=== PATIENT | female | born 1975 | race African-American/Black ===

== ENCOUNTER 2016-10-13 14:44 | Emergency (ER) | payer MEDICARE, MEDICAID ==
[~2016-10-13] VITALS: Ht 167.6 cm; Wt 53.4 kg
[~2016-10-13 14:44] MED LIST: AMLO10TA2 PO; CLON0.2T PO; HYDR-3801 PO; METO50TA PO; NIFE90TA2 PO; SEVEL800 PO
[2016-10-13 14:46] VITALS: BP 176/96; PULSE 83; RESP 15; TEMP 98.2; O2SAT 98
--- NOTE | 2016-10-13 14:54 | PD ---
HPI Chief Complaint: Syncope/Near-Syncope Time Seen by Provider: 14:54 Travel History International Travel<30 days: No Contact w/Intl Traveler<30days: No Traveled to known affect area: No History of Present Illness HPI 41 year old female with history of ESRD on dialysis T, TH, Sat, HTN, presents to the emergency department for evaluation of a sensation of lightheadedness while walking to the store. Patient states that she felt like she is going to pass out. She did not. She sat down and recuperated. She states that she felt like she may have been overheated. Denies a chest tightness. No difficulty breathing. Patient has been doing dialysis as scheduled. Denies any recent illnesses, fever, or chills. She has no other symptoms to report at this time. PFSH Past Medical History Arthritis: No Asthma: Yes Autoimmune Disease: No Blood Disorders: No Anxiety: No Depression: No Heart Rhythm Problems: Yes (HEART MURMUR) Cancer: No Cardiomyopathy: Yes ( ) Cardiovascular Problems: Yes High Cholesterol: No Chemotherapy: No Chest Pain: No Congestive Heart Failure: No COPD: No Cerebrovascular Accident: No Diabetes: No Dialysis: Yes (TUESDAY, TUESDAY, TUESDAY ) Diminished Hearing: No Endocrine: No Gastrointestinal Disorders: No GERD: No Glaucoma: No Genitourinary: Yes Headaches: Yes Hepatitis: No Hiatal Hernia: No Hypertension: Yes Immune Disorder: No Kidney Stones: No Musculoskeletal: Yes Neurologic: Yes Psychiatric: No Reproductive: No Respiratory: Yes (ASTHMA) Integumentary: No Migraines: Yes Myocardial Infarction: No Radiation Therapy: No Renal Failure: Yes Seizures: No Sickle Cell Disease: No Sleep Apnea: No Thyroid Disease: No Ulcer: No : 2 Para: 2 Tubal Ligation: Yes Past Surgical History Abdominal Surgery: No AICD: No Arteriovenous Shunt: Yes (RIGHT UPPER ARM) Cardiac Surgery: No Ear Surgery: No Endocrine Surgery: No Eye Surgery: No Genitourinary Surgery: No Joint Replacement: No Oral Surgery: No Pacemaker: No Thoracic Surgery: No Other Surgery: Yes (R UPPER ARM SHUNT, FISTULA) Social History Alcohol Use: No Tobacco Use: No Substance Use: Yes (marijuana) Allergies-Medications (Allergen,Severity, Reaction): Coded Allergies: Benadryl (Verified Adverse Reaction, Intermediate, Nausea/Vomiting, 02/23/16 ) *MDRO Multi-Drug Resistant Organism (Verified Adverse Reaction, Unknown, ) MRSA (hand wound) - 04/2005 MRSA PCR screen #1 NEGATIVE on 09/13/2014; Screen #2 NEGATIVE on 09/16/2014 THIS PATIENT NO LONGER REQUIRES ISOLATION DUE TO A HISTORY OF MRSA. SHE HAS BEEN CLEARED PER INFECTION CONTROL PROTOCOL. Reported Meds & Prescriptions Reported Meds & Active Scripts Active Reported Metoprolol Tartrate 50 Mg Tab 50 Mg PO BID Clonidine (Clonidine HCl) 0.2 Mg Tab 0.2 Mg PO TID Nifedipine ER (Nifedipine) 90 Mg Tab 60 Mg PO DAILY Renvela (Sevelamer Carbonate) 800 Mg Tab 1,600 Mg PO TID Hydralazine (Hydralazine HCl) 100 Mg Tab 100 Mg PO TID Take with meals Amlodipine (Amlodipine Besylate) 10 Mg Tab 10 Mg PO DAILY Review of Systems Except as stated in HPI: all other systems reviewed are Neg Physical Exam Narrative GENERAL: Well-nourished female patient, in no acute distress SKIN: Focused skin assessment warm/dry. HEAD: Atraumatic. Normocephalic. EYES: Pupils equal and round. No scleral icterus. No injection or drainage. ENT: No nasal bleeding or discharge. Mucous membranes pink and moist. NECK: Trachea midline. No JVD. CARDIOVASCULAR: Regular rate and rhythm. No murmur appreciated. RESPIRATORY: No accessory muscle use. Clear to auscultation. Breath sounds equal bilaterally. GASTROINTESTINAL: Abdomen soft, non-tender, nondistended. Hepatic and splenic margins not palpable. MUSCULOSKELETAL: No obvious deformities. No clubbing. No cyanosis. No edema. Right upper extremity AV fistula with positive thrill and bruit. NEUROLOGICAL: Awake and alert. No obvious cranial nerve deficits. Motor grossly within normal limits. Normal speech. PSYCHIATRIC: Appropriate mood and affect; insight and judgment normal. Data Data Last Documented VS Vital Signs Date Time Temp Pulse Resp B/P Pulse Ox O2 Delivery O2 Flow Rate FiO2 10/13/16 17:00 72 18 140/80 100 Room Air 10/13/16 14:46 98.2 Orders Iv Access Insert/Monitor (10/13/16 14:59) Complete Blood Count With Diff (10/13/16 14:59) Basic Metabolic Panel (Bmp) (10/13/16 14:59) Electrocardiogram (10/13/16 ) Urinalysis - C+S If Indicated (10/13/16 14:59) Urine Culture (10/13/16 16:25) Labs Laboratory Tests Test 10/13/16 10/13/16 15:20 16:25 White Blood Count 6.2 TH/MM3 Red Blood Count 3.66 MIL/MM3 Hemoglobin 11.3 GM/DL Hematocrit 33.7 % Mean Corpuscular Volume 92.1 FL Mean Corpuscular Hemoglobin 30.8 PG Mean Corpuscular Hemoglobin 33.5 % Concent Red Cell Distribution Width 12.9 % Platelet Count 121 TH/MM3 Mean Platelet Volume 11.2 FL Neutrophils (%) (Auto) 66.6 % Lymphocytes (%) (Auto) 21.5 % Monocytes (%) (Auto) 10.2 % Eosinophils (%) (Auto) 0.6 % Basophils (%) (Auto) 1.1 % Neutrophils # (Auto) 4.1 TH/MM3 Lymphocytes # (Auto) 1.3 TH/MM3 Monocytes # (Auto) 0.6 TH/MM3 Eosinophils # (Auto) 0.0 TH/MM3 Basophils # (Auto) 0.1 TH/MM3 CBC Comment DIFF FINAL Differential Comment Sodium Level 140 MEQ/L Potassium Level 3.9 MEQ/L Chloride Level 103 MEQ/L Carbon Dioxide Level 29.7 MEQ/L Anion Gap 7 MEQ/L Blood Urea Nitrogen 23 MG/DL Creatinine 7.16 MG/DL Estimat Glomerular Filtration 8 ML/MIN Rate Random Glucose 82 MG/DL Calcium Level 9.8 MG/DL Urine Color YELLOW Urine Turbidity HAZY Urine pH 7.5 Urine Specific [place] 1.015 Urine Protein 100 mg/dL Urine Glucose (UA) NEG mg/dL Urine Ketones NEG mg/dL Urine Occult Blood TRACE Urine Nitrite NEG Urine Bilirubin NEG Urine Urobilinogen 2.0 MG/DL Urine Leukocyte Esterase LARGE Urine RBC 5 /hpf Urine WBC 37 /hpf Urine Squamous Epithelial 10 /hpf Cells Urine Bacteria RARE /hpf Urine Hyaline Casts 1 /lpf Microscopic Urinalysis Comment CULTURE INDICATED MDM Medical Decision Making Medical Screen Exam Complete: Yes Emergency Medical Condition: Yes Medical Record Reviewed: Yes Differential Diagnosis Electrode abnormality versus dehydration versus syncope versus near syncope versus normal examination Narrative Course 41-year-old female presents to the emergency department for evaluation. Patient appears without distress. Her vital signs are stable. CBC is without acute concern. BMP is with BUN 23, creatinine 7.16, potassium is 3.9. Urinalysis is hazy with 100 proteinuria, trace occult blood, large leukocyte esterase, 5 RBC, 37 WBC, rare bacteria. I discussed the patient with my attending physician; will wait for culture results to treat. Patient has dialysis tomorrow. She appears stable and will be discharged at this time. Diagnosis Primary Impression: Near syncope Additional Impression: ESRD (end stage renal disease) on dialysis Referrals: Primary Care Physician Patient Instructions: General Instructions, Near Syncope (ED) Additional Instructions: Follow up with your primary care provider Return to ED with acute worsening of symptoms Med/Other Pt SpecificInfo: No Change to Meds Disposition: 01 DISCHARGE HOME Condition: Stable Arti Bazzi Oct 13, 2016 14:54
[2016-10-13 15:57] LABS: AUTOMATED NEUTROPHIL # 4.1 TH/MM3 (1.8-7.7); BASOPHIL # 0.1 TH/MM3 (0-0.2); BASOPHIL % 1.1 % (0.0-2.0); EOSINOPHIL % 0.6 % (0.0-4.0); HEMATOCRIT 33.7 % (35.0-46.0); HEMO FLAGS DIFF FINAL; LYMPH % 21.5 % (9.0-44.0); LYMPHOCYTE # 1.3 TH/MM3 (1.0-4.8); MEAN CELL VOLUME 92.1 FL (80.0-100.0); MEAN CORPUSCULAR HEMOGLOBIN 30.8 PG (27.0-34.0); MEAN CORPUSCULAR HGB CONC 33.5 % (32.0-36.0); MONO % 10.2 % (0.0-8.0); NEUT % 66.6 % (16.0-70.0); PLATELET COUNT 121 TH/MM3 (150-450); RED BLOOD COUNT 3.66 MIL/MM3 (4.00-5.30); RED CELL DISTRIBUTION WIDTH 12.9 % (11.6-17.2); WHITE BLOOD COUNT 6.2 TH/MM3 (4.0-11.0)
[2016-10-13 16:09] LABS: BICARBONATE 29.7 MEQ/L (21.0-32.0); POTASSIUM 3.9 MEQ/L (3.5-5.1)
[2016-10-13 16:52] LABS: BACTERIA, URINE RARE /hpf; BLOOD, URINE TRACE (NEG); COMMENT (UR) CULTURE INDICATED; CULTURE IF INDICATED CULTURE INDICATED; GLUCOSE,URINE NEG (NEG); HYALINE CAST, URINE 1 /lpf (RARE); KETONE, URINE NEG (NEG); NITRITE,URINE NEG (NEG); PH, URINE 7.5 (5.0-8.5); SQUAMOUS EPITHELIAL CELL URINE 10 /hpf (0-5); URINE COLOR YELLOW (YELLW/STRAW)
[2016-10-13 17:00] VITALS: BP_SYST 140; BP_SYST 158; BP_DIAS 80; BP_DIAS 92; PULSE 72; RESP 18; O2SAT 100
--- NOTE | 2016-10-14 17:57 | EKG ---
Date Performed: 10/13/2016 Time Performed: 15:15:20 PTAGE: 41 years EKG: Sinus rhythm WITH FIRST DEGREE AV BLOCK POSSIBLE RIGHT ATRIAL ENLARGEMENT LEFT ATRIAL ENLARGEMENT Nonspecific ST- T changes Compared to prior study of 02/23/2016, non specific T-wave changes in the inferolateral eber ds are more prominent ABNORMAL ECG PREVIOUS TRACING : 02/23/2016 13.49 DOCTOR: Nasir Starkey Interpretating Date/Time 10/14/2016 17:56:52
== END 2016-10-13 17:45 | disposition home or self-care (01) ==
LOC: NEPD 14:44
DX: R55 Syncope and collapse (principal); N18.6 End stage renal disease; I12.0 Hypertensive chronic kidney disease with stage 5 chronic kidney disease or end stage renal disease; Z99.2 Dependence on renal dialysis; Z87.09 Personal history of other diseases of the respiratory system; Z86.79 Personal history of other diseases of the circulatory system; Z87.39 Personal history of other diseases of the musculoskeletal system and connective tissue; Z86.69 Personal history of other diseases of the nervous system and sense organs
CPT/HCPCS: 80048; 81001; 85025; 87086; 93005

== ENCOUNTER 2017-08-01 00:47 | Inpatient (IN) | payer MEDICARE, MEDICAID ==
[~2017-08-01] VITALS: Ht 167.6 cm; Wt 61.8 kg
[2017-08-01] VITALS (11 sets, daily range): BP systolic 123–237; BP diastolic 58–136; PULSE 81–121; RESP 21–26; TEMP 98.4–100.5; O2SAT 95–100
--- NOTE | 2017-08-01 00:58 | PD ---
HPI Chief Complaint: Respiratory Distress Time Seen by Provider: 00:49 Travel History International Travel<30 days: No Contact w/Intl Traveler<30days: No Traveled to known affect area: No History of Present Illness HPI The patient is a 42 year old female who presents to the [facility] emergency department with a history of sudden onset of shortness of breath that began prior to her calling ambulance services. The patient reports that she does have a history of COPD. Initially she was noted by ambulance services to have some wheezing and was started on a nebulizer treatment, however within a few seconds the wheezing resolved, therefore this was discontinued. The patient 's O2 saturation on room air was 93-94%. The patient was noted to be tachycardic with a sinus tachycardia in the 120s, tachypneic with a respiratory rate in the 30s. The patient reportedly had a stent placed 2 weeks ago, however on further questioning the patient reports that because of an irregular heartbeat she had an implanted recorder placed. The patient has chronic renal failure on hemodialysis on Tuesday, , and Tuesday. Her last dialysis was Tuesday. She reports that it was a full session. She reports that she is followed for her care by Dr. Delong. The patient reports that she has had a cough and congestion that is been present for the last few days. She reports that her cough has been productive of green sputum. She denies having any known recent fevers. On review of systems otherwise she denies having any chest pain, lower extremity swelling or calf pain, history of DVT or PE, abdominal pain, vomiting, diarrhea, or neurologic symptoms. The patient has a family history of pulmonary embolism. [facility] Past Medical History Narrative Medical The patient's past medical history is significant for cardiac arrhythmia currently in the process of being worked up, history of chronic renal failure for last 10 years on hemodialysis on Tuesday, , Tuesday, history of hypertension, COPD/asthma, history of headaches. Arthritis: No Asthma: Yes Autoimmune Disease: No Blood Disorders: No Anxiety: No Depression: No Heart Rhythm Problems: Yes (HEART MURMUR) Cancer: No Cardiomyopathy: Yes ( ) Cardiovascular Problems: Yes (MURMUR) High Cholesterol: No Chemotherapy: No Chest Pain: No Congestive Heart Failure: No COPD: No Cerebrovascular Accident: No Diabetes: No Dialysis: Yes (TUESDAY, TUESDAY, TUESDAY ) Diminished Hearing: No Endocrine: No Gastrointestinal Disorders: No GERD: No Glaucoma: No Genitourinary: Yes Headaches: Yes Hepatitis: No Hiatal Hernia: No Hypertension: Yes Immune Disorder: No Implanted Vascular Access Dvce: No Kidney Stones: No Musculoskeletal: Yes Neurologic: Yes Psychiatric: No Reproductive: No Respiratory: Yes (ASTHMA) Integumentary: No Immunizations Current: Yes Migraines: Yes Myocardial Infarction: No Radiation Therapy: No Renal Failure: Yes Seizures: No Sickle Cell Disease: No Sleep Apnea: No Thyroid Disease: No Ulcer: No ?: Not : 2 Para: 2 Tubal Ligation: Yes Past Surgical History Narrative Surgical The patient's past surgical history is significant for a right AV fistula placement, implanted loop recorder, bilateral tubal ligation. Abdominal Surgery: No AICD: No Arteriovenous Shunt: Yes (RIGHT UPPER ARM) Cardiac Surgery: No Ear Surgery: No Endocrine Surgery: No Eye Surgery: No Genitourinary Surgery: No Gynecologic Surgery: Yes (TUBAL LIGATION) Joint Replacement: No Oral Surgery: No Pacemaker: No Thoracic Surgery: No Other Surgery: Yes (R UPPER ARM SHUNT, FISTULA) Social History Alcohol Use: No Tobacco Use: No Substance Use: Yes (marijuana) Allergies-Medications (Allergen,Severity, Reaction): Coded Allergies: diphenhydramine (Unverified Adverse Reaction, Intermediate, Nausea/ Vomiting, 02/01/17) *MDRO Multi-Drug Resistant Organism (Verified Adverse Reaction, Unknown, ) MRSA (hand wound) - 04/2005 MRSA PCR screen #1 NEGATIVE on 09/13/2014; Screen #2 NEGATIVE on 09/16/2014 THIS PATIENT NO LONGER REQUIRES ISOLATION DUE TO A HISTORY OF MRSA. SHE HAS BEEN CLEARED PER INFECTION CONTROL PROTOCOL. Reported Meds & Prescriptions Reported Meds & Active Scripts Active Reported Sensipar (Cinacalcet) 30 Mg Tab 30 Mg PO HS Clonidine (Clonidine HCl) 0.1 Mg Tab 0.1 Mg PO TID Metoprolol Tartrate 50 Mg Tab 50 Mg PO BID Clonidine (Clonidine HCl) 0.2 Mg Tab 0.2 Mg PO TID Nifedipine ER (Nifedipine) 90 Mg Tab 60 Mg PO DAILY Renvela (Sevelamer Carbonate) 800 Mg Tab 1,600 Mg PO TID Hydralazine (Hydralazine HCl) 100 Mg Tab 100 Mg PO TID Take with meals Amlodipine (Amlodipine Besylate) 10 Mg Tab 10 Mg PO DAILY Review of Systems Except as stated in HPI: all other systems reviewed are Neg General / Constitutional: No: Fever Eyes: No: Visual changes HENT: Positive: Rhinorrhea, Congestion, No: Headaches Cardiovascular: Positive: Dyspnea on exertion, No: Chest Pain or Discomfort, Edema Respiratory: Positive: Cough, Shortness of Breath Gastrointestinal: No: Abdominal Pain Genitourinary: No: Dysuria Musculoskeletal: No: Pain Skin: No Rash Neurologic: No: Weakness, Focal Abnormalities, Change in Mentation, Slurred Speech, Sensory Disturbance Psychiatric: No: Depression Endocrine: No: Polydipsia Hematologic/Lymphatic: No: Easy Bruising Physical Exam Narrative General: The patient is a well-developed well-nourished female in no acute distress. Head and Neck exam: Head is normocephalic atraumatic. Eyes: EOMI, pupils are equal round and reactive to light. Nose: Midline septum with pink mucous membranes Mouth: Dentition unremarkable. Moist mucus membranes. Posterior oropharynx is not erythematous. No tonsillar hypertrophy. Uvula midline. Airway patent. Neck: No palpable lymphadenopathy. No nuchal rigidity. No thyromegaly. Cardiovascular: Sinus tachycardia in the 1 teens to 120s with a 1/6 s murmur audible. No gallops or rubs. Lungs: Clear to auscultation bilaterally. No wheezes, rhonchi, or rales. Abdomen: Soft, without tenderness to palpation in all 4 quadrants of the abdomen. No guarding, rebound, or rigidity. Normal bowel sounds are audible. No tenderness on palpation of McBurney's point. Extremities: No clubbing, cyanosis, or edema. 2+ pulses in all 4 extremities. Negative Homans sign. No palpable cords. No calf tenderness on palpation. Back: No spinous process tenderness to palpation. No costovertebral angle tenderness to palpation. Neurologic Exam: Grossly nonfocal. Skin Exam: No rash noted. Intact skin that is warm and dry. Data Data Last Documented VS Vital Signs Date Time Temp Pulse Resp B/P (MAP) Pulse Ox O2 Delivery O2 Flow Rate FiO2 08/01/17 02:05 100 21 232/127 (162) 100 Nasal Cannula 2.00 08/01/17 00:49 98.4 Orders Orders Electrocardiogram (2/12/18 00:49) Complete Blood Count With Diff (08/01/17 00:49) Comprehensive Metabolic Panel (08/01/17 00:49) Creatine Kinase (Cpk) (08/01/17 00:49) Ckmb (Isoenzyme) Profile (08/01/17 00:49) Troponin I (08/01/17 00:49) B-Type Natriuretic Peptide (08/01/17 00:49) Prothrombin Time / Inr (Pt) (08/01/17 00:49) Act Partial Throm Time (Ptt) (08/01/17 00:49) Blood Culture (08/01/17 00:49) D-Dimer (08/01/17 00:49) Magnesium (Mg) (08/01/17 00:49) Chest, Single Ap (08/01/17 00:49) Iv Access Insert/Monitor (08/01/17 00:49) Ecg Monitoring (08/01/17 00:49) Oximetry (08/01/17 00:49) Lactic Acid Sepsis Protocol (08/01/17 00:49) Ventilation & Perfusion Scan (08/01/17 ) Ed Urine Pregnancytest Poc (08/01/17 00:49) Nicardipine Inj (Cardene Inj) (08/01/17 02:30) Furosemide Inj (Lasix Inj) (08/01/17 02:30) Nitroglycerin 2% Oint (Nitroglycerin 2% (08/01/17 02:30) Nitroglycerin Sl (Nitrostat Sl) (08/01/17 02:30) Admit Order (Ed Use Only) (08/01/17 02:49) Labs Laboratory Tests Test 08/01/17 01:10 08/01/17 01:20 White Blood Count 5.8 TH/MM3 Red Blood Count 2.88 MIL/MM3 Hemoglobin 9.2 GM/DL Hematocrit 27.8 % Mean Corpuscular Volume 96.4 FL Mean Corpuscular Hemoglobin 32.0 PG Mean Corpuscular Hemoglobin Concent 33.2 % Red Cell Distribution Width 13.5 % Platelet Count 124 TH/MM3 Mean Platelet Volume 10.9 FL Neutrophils (%) (Auto) 68.2 % Lymphocytes (%) (Auto) 14.9 % Monocytes (%) (Auto) 12.6 % Eosinophils (%) (Auto) 3.2 % Basophils (%) (Auto) 1.1 % Neutrophils # (Auto) 3.9 TH/MM3 Lymphocytes # (Auto) 0.9 TH/MM3 Monocytes # (Auto) 0.7 TH/MM3 Eosinophils # (Auto) 0.2 TH/MM3 Basophils # (Auto) 0.1 TH/MM3 CBC Comment DIFF FINAL Differential Comment Prothrombin Time 10.9 SEC Prothromb Time International Ratio 1.1 RATIO Activated Partial Thromboplast Time 26.8 SEC D-Dimer Quantitative (PE/DVT) 1.90 MG/L FEU Blood Urea Nitrogen 60 MG/DL Creatinine 8.90 MG/DL Random Glucose 80 MG/DL Total Protein 7.5 GM/DL Albumin 3.5 GM/DL Calcium Level 9.9 MG/DL Magnesium Level 2.1 MG/DL Alkaline Phosphatase 47 U/L Aspartate Amino Transf (AST/SGOT) 22 U/L Alanine Aminotransferase (ALT/SGPT) 26 U/L Total Bilirubin 0.5 MG/DL Sodium Level 142 MEQ/L Potassium Level 5.1 MEQ/L Chloride Level 108 MEQ/L Carbon Dioxide Level 19.8 MEQ/L Anion Gap 14 MEQ/L Estimat Glomerular Filtration Rate 6 ML/MIN Total Creatine Kinase 87 U/L Troponin I 0.03 NG/ML B-Type Natriuretic Peptide 1381 PG/ML Lactic Acid Level 0.8 mmol/L MDM Medical Decision Making Medical Screen Exam Complete: Yes Emergency Medical Condition: Yes Medical Record Reviewed: Yes Interpretation(s) Last Impressions Chest X-Ray 08/01/17 0049 Signed Impressions: Service Date/Time: Tuesday, August 01, 2017 01:09 - CONCLUSION: Cardiomegaly and pulmonary vascular congestion suspected. Dru Motta MD Lung Scan-V Nuclear Medicine 08/01/17 0000 Signed Impressions: Service Date/Time: Tuesday, August 01, 2017 02:33 - CONCLUSION: Normal examination. Dru Motta MD Differential Diagnosis Flash pulmonary edema, versus pneumonia, versus pulmonary embolism, versus acute coronary syndrome, versus COPD exacerbation Narrative Course During the course of the patient's emergency department visit, the patient's history, examination, and differential diagnosis were reviewed with the patient. The patient was placed on a pvc monitor with oximetry and frequent blood pressure monitoring. The patient had IV access obtained and blood work sent for analysis. The patient had an EKG done on arrival that shows a sinus tachycardia rate of 105, no acute ST segment elevation is noted. Marked left axis deviation is noted, QRS duration is 81 ms, QTC 411 ms. T waves are inverted in lead I, aVL. The patient was initially provided Lasix 40 mg IV, nitroglycerin 1 inch to the chest wall, nitroglycerin sublingual every 5 minutes 3, Cardene IV which will be titrated to improve the patient's blood pressure. The patient's laboratory studies were reviewed and remarkable for a white count of 5.8, hemoglobin 9.2, platelets 124 with 12.6 monocytes, CMP is remarkable for chloride 108, CO2 19.8, BUN 60, creatinine 8.90, cardiac enzymes within normal limits, BNP is 1381, lactic acid 0.8, PT PTT within normal limits, d- dimer elevated at 1.90, VQ scan was ordered. Radiology studies were reviewed and remarkable for a chest x-ray that shows cardiomegaly and pulmonary vascular congestion. VQ scan is reportedly normal. The patient's results were discussed with the patient, including the plan of care. I explained that further testing and/ or monitoring is indicated based on the patient's history, examination, and/ or laboratory findings. Therefore, I recommended admission for additional evaluation. The patient expressed understanding and was agreeable with this plan. The patient was admitted to the hospital in guarded condition and sent to a bed under the care of the [facility]. Critical Care Narrative Aggregate critical care time was 34 minutes. Time to perform other separately billable procedures was not included in the critical care time. My time did not include minutes spent treating any other patients simultaneously or on activities that did not directly contribute to the patient's treatment. The services I provided to this patient were to treat and/or prevent clinically significant deterioration that could result in: Progression of End-organ damage related to hypertensive emergency I provided critical care services requiring my management, as noted below: Chart data review, documentation time, medication orders and management, vital sign assessments/reviewing monitor data, ordering and reviewing lab tests, ordering and interpreting/reviewing x-rays and diagnostic studies, care of the patient and discussion of the patient with the admitting physicians. Physician Communication Physician Communication The patient's case including history, pertinent physical examination findings, and laboratory studies were discussed with Dr. Cedeño. It was agreed that the patient would be admitted to the [facility]. Admitting Information Admitting Physician Requests: it Annabel Eubanks MD Aug 01, 2017 00:58
--- NOTE | 2017-08-01 01:26 | RADRPT ---
EXAM DATE/TIME: 08/01/2017 01:09 [facility] COMPARISON: CHEST SINGLE AP, February 23, 2016, 14:26. INDICATIONS : Sudden onset Shortness of breath MEDICAL HISTORY : Hypertension. Renal failure, chronic. Dialysis SURGICAL HISTORY : Tubal ligation. Right upper arm shunt ENCOUNTER: Initial ACUITY: 1 day PAIN SCORE: 8/10 LOCATION: Bilateral chest FINDINGS: There is cardiomegaly identified. There is mild pulmonary vascular congestion is suspected. No effusi ons. Osseous structures are intact. CONCLUSION: Cardiomegaly and pulmonary vascular congestion suspected. Dru Motta MD on August 01, 2017 at 1:22 Board Certified Radiologist. This report was verified electronically.
[2017-08-01 01:38] LABS: AUTOMATED NEUTROPHIL # 3.9 TH/MM3 (1.8-7.7); BASOPHIL # 0.1 TH/MM3 (0-0.2); BASOPHIL % 1.1 % (0.0-2.0); EOSINOPHIL # 0.2 TH/MM3 (0-0.4); EOSINOPHIL % 3.2 % (0.0-4.0); HEMATOCRIT 27.8 % (35.0-46.0); HEMOGLOBIN 9.2 GM/DL (11.6-15.3); LYMPH % 14.9 % (9.0-44.0); LYMPHOCYTE # 0.9 TH/MM3 (1.0-4.8); MEAN CELL VOLUME 96.4 FL (80.0-100.0); MEAN CORPUSCULAR HGB CONC 33.2 % (32.0-36.0); MEAN PLATELET VOLUME 10.9 FL (7.0-11.0); MONO % 12.6 % (0.0-8.0); MONOCYTE # 0.7 TH/MM3 (0-0.9); NEUT % 68.2 % (16.0-70.0); PLATELET COUNT 124 TH/MM3 (150-450); RED BLOOD COUNT 2.88 MIL/MM3 (4.00-5.30); RED CELL DISTRIBUTION WIDTH 13.5 % (11.6-17.2); WHITE BLOOD COUNT 5.8 TH/MM3 (4.0-11.0)
[2017-08-01 01:50] LABS: ALBUMIN 3.5 GM/DL (3.4-5.0); ALT (GPT) 26 U/L (10-53); AST (GOT) 22 U/L (15-37); BICARBONATE 19.8 MEQ/L (21.0-32.0); BLOOD UREA NITROGEN 60 MG/DL (7-18); CALCIUM 9.9 MG/DL (8.5-10.1); CHLORIDE 108 MEQ/L (98-107); GLOMERULAR FILTRATION RATE 6 ML/MIN (>89); GLUCOSE,RANDOM 80 MG/DL (74-106); MAGNESIUM 2.1 MG/DL (1.5-2.5); SODIUM (NA) 142 MEQ/L (136-145)
[2017-08-01 01:51] LABS: INTERNATIONAL NORMALIZED RATIO 1.1 RATIO; PROTHROMBIN TIME - PATIENT 10.9 SEC (9.8-11.6)
[2017-08-01 01:54] LABS: ALKALINE PHOSPHATASE 47 U/L (45-117); TOTAL BILIRUBIN ADULT 0.5 MG/DL (0.2-1.0); TOTAL PROTEIN 7.5 GM/DL (6.4-8.2); TROPONIN I 0.03 NG/ML (0.02-0.05)
[2017-08-01 01:59] LABS: D-DIMER 1.9 MG/L FEU (0.00-0.50)
[2017-08-01] MEDS ORDERED: CINA30 PO (02:05)
[2017-08-01] MEDS ORDERED: CLON0.1T PO (02:05)
[2017-08-01] MEDS ORDERED: NITROGLYCERIN 0.4 MG SL 25 TABS/BTL SL PRN ×2 (02:30→10:30)
[2017-08-01] MEDS ORDERED: niCARdipine INJ 25 MG in SODIUM CHLOR 0.9% 250 ML INJ 240 ML IV ONE (02:30)
[2017-08-01] MEDS ORDERED: NITROGLYCERIN 2% OINT 1 GM PACKET TOPICAL ONE (02:30)
[2017-08-01] MEDS ORDERED: FUROSEMIDE 40 MG/4 ML VIAL IV PUSH ONE (02:30)
[2017-08-01] MEDS ORDERED: ONDANSETRON HCL 4 MG/2 ML VIAL IVP PRN (03:00)
[2017-08-01] MEDS ORDERED: LACTULOSE SYRUP 20 GM/30 ML CUP PO PRN (03:00)
[2017-08-01] MEDS ORDERED: SENNOSIDES 8.6 MG TAB PO PRN (03:00)
[2017-08-01] MEDS ORDERED: ACETAMINOPHEN/HYDROcodone 325 MG/5 MG TAB PO PRN (03:00)
[2017-08-01] MEDS ORDERED: MORPHINE SULFATE 2 MG/ML INJ IV PUSH PRN (03:00)
[2017-08-01] MEDS ORDERED: SODIUM CHLORIDE 0.9% FLUSH 10 ML FLUSH IV FLUSH PRN ×2 (03:00→10:30)
[2017-08-01] MEDS ORDERED: ACETAMINOPHEN 325 MG TAB PO PRN ×2 (03:00→10:30)
[2017-08-01] MEDS ORDERED: MAGNESIUM HYDROXIDE SUSP 30 ML CUP PO PRN (03:00)
[2017-08-01] MEDS ORDERED: BISACODYL 10 MG SUPP RECTAL PRN (03:00)
--- NOTE | 2017-08-01 03:34 | RADRPT ---
EXAM DATE/TIME: 08/01/2017 02:33 [facility] COMPARISON: CHEST SINGLE AP, August 01, 2017, 1:09. INDICATIONS : Dyspnea. DOSE: 8.8 mCi Tc99m MAA IV 0.9 mCi Tc99m DTPA aerosol MEDICAL HISTORY : Chronic obstructive pulmonary disease. Hypertension. Renal failure, chronic. SURGICAL HISTORY : Tubal ligation. Coronary artery stent. ENCOUNTER: Initial ACUITY: 1 day PAIN SCALE: 0/10 LOCATION: chest TECHNIQUE: Following five minutes of tidal breathing of DTPA aerosol, planar images of the lungs were performed in eight projections. The patient was then injected with MAA, and eight-view perfusion scan was perf ormed. FINDINGS: There is a homogeneous pattern of aerosol delivery to the periphery of both lungs. No focal ventilat ory defects are seen. The perfusion lung scan demonstrates a homogenous pattern of uptake in both lungs. No segmental or s ubsegmental defects are seen. CONCLUSION: Normal examination. Dru Motta MD on August 01, 2017 at 3:32 Board Certified Radiologist. This report was verified electronically.
[2017-08-01] MEDS ORDERED: RESP: ALBUTEROL 2.5 MG/IPRATROPIUM 0.5 MG NEB (PRN) NEB (04:30)
--- NOTE | 2017-08-01 04:33 | HHI.HP ---
[facility] No Primary Care Physician Admission Diagnosis Hypertensive emergency, pulmonary edema Diagnoses: (1) Hypertensive urgency Diagnosis: Principal (2) Chest pain Diagnosis: Principal (3) COPD (chronic obstructive pulmonary disease) Diagnosis: Principal (4) ESRD (end stage renal disease) on dialysis Diagnosis: Principal Travel History International Travel<30 Days: No Contact w/Intl Traveler <30 Da: No Traveled to Known Affected Are: No History of Present Illness This is a 42-year-old female with a PMH of HTN, ESRD on HD and COPD who was brought to the ER secondary to c/o chest pain and SOB. Reports symptoms started acutely this evening, had episode of wheezing, however resolved after DuoNeb. Denies fever or chills. Does note recent cough/congestion. On arrival , BP 232/127, HR 100, O2 sat 100% on 2L NC. Immediately started on Cardene gtt and given NTG in ER. CBC at baseline. Chemistry essentially at baseline. Creatinine 8.90, previously 7.16 on 10/13/16. Troponin 0.03. BNP 1381. Lactic Acid negative. CXR with cardiomegaly and pulmonary vascular congestion. VQ scan negative. Reports HD on without complications, follows w/ Dr. Delong. Review of Systems Except as stated in HPI: all other systems reviewed are Neg ROS: 14 point review of systems otherwise negative. Past Family Social History Past Medical History PMH: HTN, ESRD on HD and COPD Past Surgical History PAST SURGICAL HISTORY: RUE AV Fistula, Loop Recorder, Tubal Ligation Allergies: Coded Allergies: diphenhydramine (Unverified Adverse Reaction, Intermediate, Nausea/ Vomiting, 02/01/17) *MDRO Multi-Drug Resistant Organism (Verified Adverse Reaction, Unknown, ) MRSA (hand wound) - 04/2005 MRSA PCR screen #1 NEGATIVE on 09/13/2014; Screen #2 NEGATIVE on 09/16/2014 THIS PATIENT NO LONGER REQUIRES ISOLATION DUE TO A HISTORY OF MRSA. SHE HAS BEEN CLEARED PER INFECTION CONTROL PROTOCOL. Family History PAST FAMILY HISTORY: Reviewed. No h/o DM or CAD Social History PAST SOCIAL HISTORY: Negative for alcohol, tobacco or drugs. Physical Exam Vital Signs Vital Signs Date Time Temp Pulse Resp B/P (MAP) Pulse Ox O2 Delivery O2 Flow Rate FiO2 08/01/17 04:15 115 265/128 08/01/17 03:30 100 238/114 08/01/17 03:21 99 245/113 08/01/17 02:05 100 21 232/127 (162) 100 Nasal Cannula 2.00 08/01/17 00:56 105 20 99 Nasal Cannula 2.00 08/01/17 00:55 21 99 Nasal Cannula 2.00 08/01/17 00:49 98.4 108 21 237/136 (169) 99 Physical Exam PE: GENERAL: Middle-aged black female in no acute distress. HEENT: PERRLA, EOMI. No scleral icterus or conjunctival pallor. No lid lag or facial droop. CARDIOVASCULAR: Regular rate and rhythm. No obvious murmurs to auscultation. No chest tenderness to palpation. RESPIRATORY: No obvious rhonchi or wheezing. Clear to auscultation. Breath sounds equal bilaterally. GASTROINTESTINAL: Abdomen soft, non-tender, nondistended. BS normal. MUSCULOSKELETAL: Extremities without clubbing, cyanosis, or edema. No obvious deformities. NEUROLOGICAL: Awake, alert and oriented x4. No focal neurologic deficits. Moving both upper and lower extremities spontaneously. Laboratory Laboratory Tests Test 08/01/17 01:10 08/01/17 01:20 White Blood Count 5.8 Red Blood Count 2.88 Hemoglobin 9.2 Hematocrit 27.8 Mean Corpuscular Volume 96.4 Mean Corpuscular Hemoglobin 32.0 Mean Corpuscular Hemoglobin Concent 33.2 Red Cell Distribution Width 13.5 Platelet Count 124 Mean Platelet Volume 10.9 Neutrophils (%) (Auto) 68.2 Lymphocytes (%) (Auto) 14.9 Monocytes (%) (Auto) 12.6 Eosinophils (%) (Auto) 3.2 Basophils (%) (Auto) 1.1 Neutrophils # (Auto) 3.9 Lymphocytes # (Auto) 0.9 Monocytes # (Auto) 0.7 Eosinophils # (Auto) 0.2 Basophils # (Auto) 0.1 CBC Comment DIFF FINAL Differential Comment Prothrombin Time 10.9 Prothromb Time International Ratio 1.1 Activated Partial Thromboplast Time 26.8 D-Dimer Quantitative (PE/DVT) 1.90 Blood Urea Nitrogen 60 Creatinine 8.90 Random Glucose 80 Total Protein 7.5 Albumin 3.5 Calcium Level 9.9 Magnesium Level 2.1 Alkaline Phosphatase 47 Aspartate Amino Transf (AST/SGOT) 22 Alanine Aminotransferase (ALT/SGPT) 26 Total Bilirubin 0.5 Sodium Level 142 Potassium Level 5.1 Chloride Level 108 Carbon Dioxide Level 19.8 Anion Gap 14 Estimat Glomerular Filtration Rate 6 Total Creatine Kinase 87 Troponin I 0.03 B-Type Natriuretic Peptide 1381 Lactic Acid Level 0.8 Date/Time Source Procedure Growth Status 08/01/17 01:20 Blood Peripheral Aerobic Blood Culture Pending Received 08/01/17 01:20 Blood Peripheral Anaerobic Blood Culture Pending Received Result Diagram: 08/01/1710908/01/17109 Caprini VTE Risk Assessment Wilmer VTE Risk Assessment: Mod/High Risk (score >= 2) Caprini Risk Assessment Model Point Value = 1 Point Value = 2 Point Value = 3 Point Value = 5 Age 41-60 Minor surgery BMI > 25 kg/m2 Swollen legs Varicose veins or History of unexplained or recurrent spontaneous Oral contraceptives or hormone replacement Sepsis (< 1 month) Serious lung disease, including pneumonia (< 1 month) Abnormal pulmonary function Acute myocardial infarction Congestive heart failure (< 1 month) History of inflammatory bowel disease Medical patient at bed rest Age 61-74 Arthroscopic surgery Major open surgery (> 45 min) Laparoscopic surgery (> 45 min) Malignancy Confined to bed (> 72 hours) Immobilizing plaster cast Central venous access Age >= 75 History of VTE Family history of VTE Factor V Leiden Prothrombin [id number] Lupus anticoagulant Anticardiolipin antibodies Elevated serum homocysteine Heparin-induced thrombocytopenia Other congenital or acquired thrombophilia Stroke (< 1 month) Elective arthroplasty Hip, pelvis, or leg fracture Acute spinal cord injury (< 1 month) Prophylaxis Regimen Total Risk Factor Score Risk Level Prophylaxis Regimen 0-1 Low Early ambulation 2 Moderate Order ONE of the following: *Sequential Compression Device (SCD) *Heparin 5000 units SQ BID 3-4 Higher Order ONE of the following medications: *Heparin 5000 units SQ TID *Enoxaparin/Lovenox 40 mg SQ daily (WT < 150 kg, CrCl > 30 mL/min) *Enoxaparin/Lovenox 30 mg SQ daily (WT < 150 kg, CrCl > 10-29 mL/min) *Enoxaparin/Lovenox 30 mg SQ BID (WT < 150 kg, CrCl > 30 mL/min) AND/OR *Sequential Compression Device (SCD) 5 or more Highest Order ONE of the following medications: *Heparin 5000 units SQ TID (Preferred with Epidurals) *Enoxaparin/Lovenox 40 mg SQ daily (WT < 150 kg, CrCl > 30 mL/min) *Enoxaparin/Lovenox 30 mg SQ daily (WT < 150 kg, CrCl > 10-29 mL/min) *Enoxaparin/Lovenox 30 mg SQ BID (WT < 150 kg, CrCl > 30 mL/min) AND *Sequential Compression Device (SCD) Assessment and Plan Problem List: (1) Hypertensive urgency ICD Code: I16.0 - Hypertensive urgency (2) Chest pain ICD Code: R07.9 - Chest pain, unspecified (3) COPD (chronic obstructive pulmonary disease) ICD Code: J44.9 - Chronic obstructive pulmonary disease, unspecified (4) ESRD (end stage renal disease) on dialysis ICD Code: N18.6 - End stage renal failure on dialysis; Z99.2 - Dependence on renal dialysis Status: Acute Assessment and Plan A/P: 1. Hypertensive Urgency: BP 232/127, HR 100 on arrival, currently on Cardene gtt. Reviewed home medication list, on multiple antihypertensives, will resume , titrate Cardene as needed. 2. Chest Pain: Likely related to uncontrolled BP. Initial trop 0.03, EKG w/ no acute ischemia. Place on telemetry, check serial cardiac enzymes to eval for possible underlying ischemia. NTG/Morphine as needed. Consult cardiology if needed for further evaluation. CXR w/ pulmonary congestion, images reviewed by me. VQ negative for PE. 3. ESRD on HD: T//, follows w/ Dr. Delong, will consult to resume HD. S /p Lasix in ER. 4. COPD: Chronic Respiratory Failure w/ Acute Exacerbation. Moderate. + wheezing prior to arrival, s/p DuoNeb w/ resolution. Monitor O2. DuoNeb prn. 5. 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 7. Case discussed at length with ER physician, lab/records/imaging reviewed by me. Physician Certification 2 Midnight Certification Type: Admission for Inpatient Services Order for Inpatient Services The services are ordered in accordance with Medicare regulations or non- Medicare payer requirements, as applicable. In the case of services not specified as inpatient-only, they are appropriately provided as inpatient services in accordance with the 2-midnight benchmark. Estimated LOS (days): 2 days is the estimated time the patient will need to remain in the hospital, assuming treatment plan goals are met and no additional complications. Post-Hospital Plan: Not yet determined Anastacia Cedeño MD Aug 01, 2017 04:33
[2017-08-01] MEDS: METOPROLOL TARTRATE 50 MG TAB PO SCH ×2 (08:58→21:14)
[2017-08-01] MEDS: SODIUM CHLORIDE 0.9% FLUSH 10 ML FLUSH IV FLUSH SCH ×2 (08:58→21:00)
[2017-08-01] MEDS: HEPARIN SODIUM - SQ 10,000 UNITS/ML VIAL SQ SCH ×2 (08:58→21:14)
[2017-08-01] MEDS: hydrALAZINE HCL 100 MG TAB PO SCH ×3 (08:58→17:14)
[2017-08-01] MEDS ORDERED: SODIUM CHLOR 0.9% IV PRN (09:00)
[2017-08-01] MEDS ORDERED: NIFEdipine 90 MG SUSTAINED RELEASE TAB PO SCH (09:00)
[2017-08-01] MEDS: SEVELAMER CARBONATE 800 MG TAB PO SCH ×3 (09:00→17:14)
[2017-08-01] MEDS ORDERED: niCARdipine INJ 50 MG in SODIUM CHLORID 0.9% 500 ML INJ 480 ML IV PRN (09:00)
[2017-08-01] MEDS: DOCUSATE SODIUM 50 MG/SENNA 8.6 MG TAB PO SCH ×2 (09:00→21:00)
[2017-08-01] MEDS ORDERED: NICARDIPINE IV PRN (09:00)
[2017-08-01] MEDS: niCARdipine INJ 50 MG in SODIUM CHLORID 0.9% 500 ML INJ 480 ML IV PRN ×3 (09:30→21:14)
[2017-08-01] MEDS ORDERED: SODIUM CHLOR 0.9% 1000 ML INJ 1,000 ML OTHER PRN ×2 (10:19)
[2017-08-01] MEDS ORDERED: SODIUM CHLOR 0.9% 1000 ML INJ 1,000 ML IV PRN (10:19)
[2017-08-01] MEDS ORDERED: EPOETIN ALFA 10,000 UNITS/ML VIAL IV PUSH PRN (10:30)
[2017-08-01] MEDS ORDERED: HEPARIN SODIUM - IV 10,000 UNITS/10 ML VIAL PRN (10:30)
[2017-08-01] MEDS ORDERED: GELATIN 12 MM/7 MM FOAM TOP PRN (10:30)
[2017-08-01] MEDS ORDERED: HEPARIN SODIUM - IV 10,000 UNITS/10 ML VIAL IV FLUSH PRN (10:30)
[2017-08-01] MEDS ORDERED: GENTAMICIN SULFATE 20 MG/2 ML VIAL OTHER PRN (10:30)
[2017-08-01] MEDS ORDERED: ALBUMIN 25% INJ 100 ML IV PRN (10:30)
[2017-08-01] MEDS ORDERED: ONDANSETRON HCL 4 MG/2 ML VIAL IV PUSH PRN (10:30)
[2017-08-01] MEDS ORDERED: cloNIDine HCL 0.1 MG TAB PO PRN (10:30)
[2017-08-01] MEDS ORDERED: MANNITOL 12.5 GM/50 ML VIAL IV PRN (10:30)
[2017-08-01] MEDS ORDERED: diphenhydrAMINE HCL 25 MG CAP PO PRN (10:30)
--- NOTE | 2017-08-01 10:35 | PD.CONS ---
HPI Service Nephrology Consult Requested By Dr. Cedeño Reason for Consult ESRD on HD Primary Care Physician No Primary Care Physician History of Present Illness Patient is a 42-year-old female with a PMH of HTN, ESRD on HD and COPD who was brought to the ER secondary to c/o chest pain and SOB. She was awaken at [place] with reports of acute severe SOB. Denies fever or chills. Does note recent cough/congestion. Patient is noted to be HTN. BNP elevated 1381. Lasix was given in ED. Lactic Acid negative. CXR with cardiomegaly and pulmonary vascular congestion. VQ scan negative. Reports last HD on without complications, follows w/ Dr. Delong. (Mitzi Stephens) Review of Systems Respiratory: COMPLAINS OF: Shortness of breath, DENIES: Cough, Sputum production Cardiovascular: COMPLAINS OF: Chest pain, DENIES: Lower Extremity Edema Gastrointestinal: DENIES: Abdominal pain, Diarrhea, Nausea, Vomiting Psychiatric: COMPLAINS OF: Anxiety (Mitzi Stephens) Past Family Social History Allergies: Coded Allergies: diphenhydramine (Unverified Adverse Reaction, Intermediate, Nausea/ Vomiting, 02/01/17) *MDRO Multi-Drug Resistant Organism (Verified Adverse Reaction, Unknown, ) MRSA (hand wound) - 04/2005 MRSA PCR screen #1 NEGATIVE on 09/13/2014; Screen #2 NEGATIVE on 09/16/2014 THIS PATIENT NO LONGER REQUIRES ISOLATION DUE TO A HISTORY OF MRSA. SHE HAS BEEN CLEARED PER INFECTION CONTROL PROTOCOL. Past Medical History HTN, ESRD on HD and COPD Past Surgical History PAST SURGICAL HISTORY: RUE AV Fistula, Loop Recorder, Tubal Ligation Active Ordered Medications Current Medications Medications (Trade) Dose Ordered Sig/Phylicia Route Start Time Stop Time Status Last Admin (Nitrostat Sl) 0.4 mg Q5M PRN SL 08/01/17 02:30 (NS Flush) 2 ml UNSCH PRN IV FLUSH 08/01/17 03:00 (NS Flush) 2 ml BID IV FLUSH 08/01/17 09:00 08/01/17 08:58 (Zofran Inj) 4 mg Q6H PRN IVP 08/01/17 03:00 (Heparin Inj) 5,000 units Q12H SQ 08/01/17 09:00 08/01/17 08:58 (Tylenol) 650 mg Q6H PRN PO 08/01/17 03:00 (Pawling 5-325 Mg) 1 tab Q4H PRN PO 08/01/17 03:00 (Morphine Inj) 2 mg Q3H PRN IV PUSH 08/01/17 03:00 (Jing-Colace) 1 tab BID PO 08/01/17 09:00 (Milk Of Magnesia Liq) 30 ml Q12H PRN PO 08/01/17 03:00 (Senokot) 17.2 mg Q12H PRN PO 08/01/17 03:00 (Dulcolax Supp) 10 mg DAILY PRN RECTAL 08/01/17 03:00 (Lactulose Liq) 30 ml DAILY PRN PO 08/01/17 03:00 (Sensipar) 30 mg HS PO 08/01/17 21:00 (Apresoline) 100 mg TID PO 08/01/17 09:00 08/01/17 08:58 (Lopressor) 50 mg BID PO 08/01/17 09:00 08/01/17 08:58 (Procardia Xl) 60 mg DAILY PO 08/01/17 09:00 (Renvela) 1,600 mg TID PO 08/01/17 09:00 (Duoneb Neb) 1 ampule Q4HR NEB PRN NEB 08/01/17 04:30 Nicardipine HCl 50 mg/Sodium Chloride 500 ml @ 50 mls/hr TITRATE PRN IV 08/01/17 10:00 Social History Denies any ETOH or smoking Lives with daughter (Mitzi Stephens) Physical Exam Vital Signs Vital Signs Date Time Temp Pulse Resp B/P (MAP) Pulse Ox O2 Delivery O2 Flow Rate FiO2 08/01/17 06:48 08/01/17 06:40 119 178/92 08/01/17 05:45 118 201/104 08/01/17 05:30 116 178/99 08/01/17 05:15 118 181/91 08/01/17 05:00 115 193/102 08/01/17 04:53 112 233/111 08/01/17 04:30 110 246/123 08/01/17 04:15 115 265/128 08/01/17 03:30 100 238/114 08/01/17 03:21 99 245/113 08/01/17 02:05 100 21 232/127 (162) 100 Nasal Cannula 2.00 08/01/17 00:56 105 20 99 Nasal Cannula 2.00 08/01/17 00:55 21 99 Nasal Cannula 2.00 08/01/17 00:49 98.4 108 21 237/136 (169) 99 Physical Exam GENERAL: Alert and oriented HEENT: PERRLA, EOMI. No scleral icterus or conjunctival pallor. No lid lag or facial droop. CARDIOVASCULAR: Regular rate and rhythm. No obvious murmurs to auscultation. Chest tenderness to palpation recent loop recorder placment RESPIRATORY: No obvious rhonchi or wheezing. Breath sounds equal bilaterally. Diminished GASTROINTESTINAL: Abdomen soft, non-tender, nondistended. BS normal. MUSCULOSKELETAL: Extremities without clubbing, cyanosis, or edema. No obvious deformities. NEUROLOGICAL: Awake, alert and oriented x4. No focal neurologic deficits. Moving both upper and lower extremities spontaneously. Laboratory Laboratory Tests Test 08/01/17 01:10 08/01/17 01:20 White Blood Count 5.8 Red Blood Count 2.88 Hemoglobin 9.2 Hematocrit 27.8 Mean Corpuscular Volume 96.4 Mean Corpuscular Hemoglobin 32.0 Mean Corpuscular Hemoglobin Concent 33.2 Red Cell Distribution Width 13.5 Platelet Count 124 Mean Platelet Volume 10.9 Neutrophils (%) (Auto) 68.2 Lymphocytes (%) (Auto) 14.9 Monocytes (%) (Auto) 12.6 Eosinophils (%) (Auto) 3.2 Basophils (%) (Auto) 1.1 Neutrophils # (Auto) 3.9 Lymphocytes # (Auto) 0.9 Monocytes # (Auto) 0.7 Eosinophils # (Auto) 0.2 Basophils # (Auto) 0.1 CBC Comment DIFF FINAL Differential Comment Prothrombin Time 10.9 Prothromb Time International Ratio 1.1 Activated Partial Thromboplast Time 26.8 D-Dimer Quantitative (PE/DVT) 1.90 Blood Urea Nitrogen 60 Creatinine 8.90 Random Glucose 80 Total Protein 7.5 Albumin 3.5 Calcium Level 9.9 Magnesium Level 2.1 Alkaline Phosphatase 47 Aspartate Amino Transf (AST/SGOT) 22 Alanine Aminotransferase (ALT/SGPT) 26 Total Bilirubin 0.5 Sodium Level 142 Potassium Level 5.1 Chloride Level 108 Carbon Dioxide Level 19.8 Anion Gap 14 Estimat Glomerular Filtration Rate 6 Total Creatine Kinase 87 Troponin I 0.03 B-Type Natriuretic Peptide 1381 Lactic Acid Level 0.8 Date/Time Source Procedure Growth Status 08/01/17 01:20 Blood Peripheral Aerobic Blood Culture Pending Received 08/01/17 01:20 Blood Peripheral Anaerobic Blood Culture Pending Received (Mitzi Stephens) Result Diagram: 08/01/17 0110 08/01/17 0110 Imaging Last Impressions Chest X-Ray 08/01/17 0049 Signed Impressions: Service Date/Time: Tuesday, August 01, 2017 01:09 - CONCLUSION: Cardiomegaly and pulmonary vascular congestion suspected. Dru Motta MD Lung Scan-VQ Nuclear Medicine 08/01/17 0000 Signed Impressions: Service Date/Time: Tuesday, August 01, 2017 02:33 - CONCLUSION: Normal examination. 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 Patient seen and examined, agree with above. Patient seen during HD. BP is better, taper off Nicardipine as tolerated. Started on oral meds. (2) Hypertensive urgency ICD Codes: I16.0 - Hypertensive urgency Plan: Home medications resumed Nicardipine gtt as needed (3) COPD (chronic obstructive pulmonary disease) ICD Codes: J44.9 - Chronic obstructive pulmonary disease, unspecified (Jared Shine MD) Mitzi Stephens Aug 01, 2017 10:35 Jared Shine MD Aug 01, 2017 15:35
--- NOTE | 2017-08-01 11:04 | EKG ---
Date Performed: 08/01/2017 Time Performed: 01:12:45 PTAGE: 42 years EKG: SINUS TACHYCARDIA POSSIBLE RIGHT ATRIAL ENLARGEMENT LEFT ATRIAL ENLARGEMENT MARKED LEFT AXI S DEVIATION ABNORMAL QRS-T ANGLE ABNORMAL ECG Since the prior tracing, there has been no significant change PREVIOUS TRACING : 10/13/2016 15.15 DOCTOR: Nasir Starkey Interpretating Date/Time 08/01/2017 11:00:58
[2017-08-01] MEDS: NIFEdipine 60 MG SUSTAINED RELEASE TAB PO SCH (17:14)
[2017-08-01] MEDS: cloNIDine HCL 0.2 MG TAB PO SCH (18:00)
[2017-08-01] MEDS: CINACALCET HYDROCHLORIDE 30 MG TAB PO SCH (21:14)
[2017-08-02] VITALS (12 sets, daily range): BP systolic 114–148; BP diastolic 76–85; PULSE 74–83; RESP 18–26; TEMP 98.2–99.2; O2SAT 94–100
[2017-08-02] MEDS: SODIUM CHLORIDE 0.9% FLUSH 10 ML FLUSH IV FLUSH SCH ×2 (08:36→20:11)
[2017-08-02] MEDS: METOPROLOL TARTRATE 50 MG TAB PO SCH ×2 (08:36→20:11)
[2017-08-02] MEDS: NIFEdipine 60 MG SUSTAINED RELEASE TAB PO SCH (08:37)
[2017-08-02] MEDS: HEPARIN SODIUM - SQ 10,000 UNITS/ML VIAL SQ SCH ×2 (08:37→20:11)
[2017-08-02] MEDS: hydrALAZINE HCL 100 MG TAB PO SCH ×3 (08:37→17:03)
[2017-08-02] MEDS: DOCUSATE SODIUM 50 MG/SENNA 8.6 MG TAB PO SCH ×2 (08:37→20:11)
[2017-08-02] MEDS: SEVELAMER CARBONATE 800 MG TAB PO SCH ×3 (08:37→17:03)
[2017-08-02] MEDS: cloNIDine HCL 0.2 MG TAB PO SCH ×3 (08:37→17:03)
[2017-08-02] MEDS ORDERED: NIFEdipine 60 MG SUSTAINED RELEASE TAB PO SCH (09:00)
[2017-08-02 11:07] LABS: BASOPHIL # 0.1 TH/MM3 (0-0.2); BASOPHIL % 1.1 % (0.0-2.0); EOSINOPHIL # 0.2 TH/MM3 (0-0.4); HEMATOCRIT 27.5 % (35.0-46.0); HEMOGLOBIN 9.4 GM/DL (11.6-15.3); LYMPH % 20.8 % (9.0-44.0); MEAN CORPUSCULAR HEMOGLOBIN 32.5 PG (27.0-34.0); MEAN CORPUSCULAR HGB CONC 34.2 % (32.0-36.0); MEAN PLATELET VOLUME 10.8 FL (7.0-11.0); MONO % 14.8 % (0.0-8.0); MONOCYTE # 0.7 TH/MM3 (0-0.9); NEUT % 60.3 % (16.0-70.0); PLATELET COUNT 140 TH/MM3 (150-450); RED BLOOD COUNT 2.89 MIL/MM3 (4.00-5.30); RED CELL DISTRIBUTION WIDTH 13.5 % (11.6-17.2)
[2017-08-02 11:30] LABS: ALBUMIN 3.3 GM/DL (3.4-5.0); ALT (GPT) 20 U/L (10-53); AST (GOT) 12 U/L (15-37); BICARBONATE 26.6 MEQ/L (21.0-32.0); BLOOD UREA NITROGEN 30 MG/DL (7-18); CALCIUM 9.2 MG/DL (8.5-10.1); CHLORIDE 104 MEQ/L (98-107); CREATININE 6.41 MG/DL (0.50-1.00); GLOMERULAR FILTRATION RATE 9 ML/MIN (>89); GLUCOSE,RANDOM 125 MG/DL (74-106); SODIUM (NA) 139 MEQ/L (136-145)
[2017-08-02 11:33] LABS: ALKALINE PHOSPHATASE 38 U/L (45-117); FREE T4 1.18 NG/DL (0.76-1.46); PHOSPHORUS 4.6 MG/DL (2.5-4.9); TOTAL BILIRUBIN ADULT 0.4 MG/DL (0.2-1.0); TOTAL PROTEIN 6.9 GM/DL (6.4-8.2); TROPONIN I 0.05 NG/ML (0.02-0.05)
--- NOTE | 2017-08-02 11:42 | HHI.PR ---
Subjective Remarks Patient reports she is feeling better. Due for dialysis today again. She denies chest pain. No shortness of breath. Objective Vitals Vital Signs Date Time Temp Pulse Resp B/P (MAP) Pulse Ox O2 Delivery O2 Flow Rate FiO2 08/02/17 10:00 76 08/02/17 09:08 94 21 08/02/17 08:00 98.2 83 20 145/83 (103) 98 08/02/17 08:00 83 08/02/17 06:00 78 08/02/17 04:00 80 08/02/17 04:00 99.0 80 22 148/85 (106) 08/02/17 02:00 80 08/02/17 00:00 82 08/02/17 00:00 99.1 82 21 137/76 (96) 95 08/01/17 22:00 86 08/01/17 22:00 86 121/65 08/01/17 21:45 92 124/69 08/01/17 21:30 94 118/71 08/01/17 21:15 92 124/65 08/01/17 21:14 92 124/65 08/01/17 20:00 99.8 94 23 123/58 (79) 97 08/01/17 20:00 94 08/01/17 18:00 106 08/01/17 17:10 2.00 08/01/17 16:00 88 08/01/17 16:00 100.5 88 23 154/79 (104) 96 08/01/17 14:58 84 143/79 08/01/17 14:00 84 08/01/17 12:00 100.2 81 23 133/81 (98) 95 08/01/17 12:00 81 08/01/17 11:45 82 126/78 I/O 08/01/17 08/01/17 08/01/17 08/02/17 08/02/17 08/02/17 07:00 15:00 23:00 07:00 15:00 23:00 Intake Total 750 ml 950 ml 120 ml Output Total 500 ml Balance 750 ml 950 ml -380 ml Intake Oral 450 ml 120 ml IV Total 750 ml 500 ml Output Urine Total 500 ml # Voids 7 # Bowel Movements 1 0 Result Diagram: 08/02/17 1033 08/02/17 1003 Objective Remarks GENERAL: This is a well-nourished, well-developed patient, in no apparent distress. CARDIOVASCULAR: Normal rate and regular rhythm without murmurs, gallops, or rubs. RESPIRATORY: Good respiratory efforts. Diminished breath sounds at the bases. Faint expiratory wheezes bilaterally. GASTROINTESTINAL: Abdomen soft, non-tender, non-distended. Normal active bowel sounds MUSCULOSKELETAL: Extremities without cyanosis, or edema. NEURO: Alert & Oriented x4 to person, place, time, situation. Moves all ext x4 PSYCH: Appropriate mood and affect. A/P Problem List: (1) Hypertensive urgency ICD Code: I16.0 - Hypertensive urgency (2) Chest pain ICD Code: R07.9 - Chest pain, unspecified (3) COPD (chronic obstructive pulmonary disease) ICD Code: J44.9 - Chronic obstructive pulmonary disease, unspecified (4) ESRD (end stage renal disease) on dialysis ICD Code: N18.6 - End stage renal failure on dialysis; Z99.2 - Dependence on renal dialysis Status: Acute Assessment and Plan 42-year-old female who presented with shortness of breath and chest pain. The patient missed hemodialysis. She was found to be in hypertensive urgency: Hypertensive Urgency: BP 232/127, HR 100 on arrival, status post Cardene gtt. BP better controlled. Continue home dose antihypertensives. Patient is on multiple agents. Discussed the need to be compliant. Chest Pain: Likely related to uncontrolled BP. EKG and cardiac enzymes unremarkable. Chest pain resolved. CXR w/ pulmonary congestion. VQ negative for PE. ESRD on HD: Appreciate nephrology following. Hemodialysis per nephrology. COPD: Chronic Respiratory Failure w/ Acute Exacerbation. Moderate. +wheezing prior to arrival, s/p DuoNeb w/ resolution. Monitor O2. DuoNeb prn. DVT Prophylaxis: Heparin Discharge Planning Probable discharge tomorrow if cleared by nephrology. Danny Majano MD Aug 02, 2017 11:42
[2017-08-02 17:53] LABS: HEMOGLOBIN A1C 4.3 % (4.3-6.0)
[2017-08-02] MEDS: CINACALCET HYDROCHLORIDE 30 MG TAB PO SCH (20:11)
--- NOTE | 2017-08-02 20:40 | HHI.NPPN ---
Subjective General Problems: Anemia, Hypertension Renal Failure: End Stage Renal Disease History of Present Illness 42-year-old female with a PMH of HTN, ESRD on HD T//S and COPD who was brought to the ER secondary to c/o chest pain and SOB. Patient was also found to have uncontrolled Hypertension. Additional Remarks Patient is alert, still has chest pain off and on , no headache. Review of Systems Respiratory Lungs: Wheeze Cardiovascular Cardiac: Chest Pain, HAQUE Objective Data Data 08/02/17 08/03/17 19:00 07:00 Intake Total 800 ml Output Total 3350 ml Balance -2550 ml Intake Oral 800 ml Output Urine Total 350 ml Hemodialysis 3000 ml # Bowel Movements 0 Vital Signs Date Time Temp Pulse Resp B/P (MAP) Pulse Ox O2 Delivery O2 Flow Rate FiO2 08/02/17 18:00 74 08/02/17 16:00 99.2 74 26 129/76 (93) 97 08/02/17 16:00 74 08/02/17 14:00 81 08/02/17 12:00 98.6 76 18 129/76 (93) 96 08/02/17 12:00 74 08/02/17 10:00 76 08/02/17 09:08 94 21 08/02/17 08:00 98.2 83 20 145/83 (103) 98 08/02/17 08:00 83 08/02/17 06:00 78 08/02/17 04:00 80 08/02/17 04:00 99.0 80 22 148/85 (106) 08/02/17 02:00 80 08/02/17 00:00 82 08/02/17 00:00 99.1 82 21 137/76 (96) 95 08/01/17 22:00 86 08/01/17 22:00 86 121/65 08/01/17 21:45 92 124/69 08/01/17 21:30 94 118/71 08/01/17 21:15 92 124/65 08/01/17 21:14 92 124/65 -: 08/02/17 1033 08/02/17 1003 Physical Exam General Appearance: Well Nourished, No Acute Distress, Comfortable Eyes Eye Exam: Pupils Equal Throat Throat Exam: Oral Mucosa [place] & Moist Pulmonary Resp Exam: Breath Sounds Equal, No Distress, Rhonchi, Decreased Bases Cardiology CV Exam: Regular, Normal Sinus Rhythm Gastrointestinal/Abdomen GI Exam: Soft, Non-Tender, Bowel Sounds Present, Non-Distended Extremeties Extremities Exam: Trace Edema Neurologic Neuro Exam: Alert, Awake, Oriented Psychiatric Psych Exam: Appropriate Responses Assessment/Plan Assessment Summary: Anemia of CKD, Hypertension, End Stage Renal Disease Problem List: (1) ESRD (end stage renal disease) on dialysis ICD Codes: N18.6 - End stage renal failure on dialysis; Z99.2 - Dependence on renal dialysis Status: Acute Plan: HD on //Tue 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 BP is better, now off Nicardipine. (2) Hypertensive urgency ICD Codes: I16.0 - Hypertensive urgency Plan: Home medications resumed Nicardipine gtt as needed (3) COPD (chronic obstructive pulmonary disease) ICD Codes: J44.9 - Chronic obstructive pulmonary disease, unspecified Jared Shine MD Aug 02, 2017 20:40
[2017-08-03] VITALS: BP 120/63; PULSE 77; RESP 18; TEMP 98.4; O2SAT 99
[2017-08-03 04:00] VITALS: BP 114/61; PULSE 62; RESP 18; TEMP 97.2; O2SAT 100
[2017-08-03 07:50] VITALS: BP 127/80; PULSE 71; RESP 18; TEMP 98; O2SAT 99
[2017-08-03] MEDS: SEVELAMER CARBONATE 800 MG TAB PO SCH (10:00)
[2017-08-03] MEDS: hydrALAZINE HCL 100 MG TAB PO SCH (10:01)
[2017-08-03] MEDS: DOCUSATE SODIUM 50 MG/SENNA 8.6 MG TAB PO SCH (10:01)
[2017-08-03] MEDS: cloNIDine HCL 0.2 MG TAB PO SCH (10:01)
[2017-08-03] MEDS: METOPROLOL TARTRATE 50 MG TAB PO SCH (10:01)
[2017-08-03] MEDS: NIFEdipine 60 MG SUSTAINED RELEASE TAB PO SCH (10:01)
[2017-08-03] MEDS: SODIUM CHLORIDE 0.9% FLUSH 10 ML FLUSH IV FLUSH SCH (10:01)
[2017-08-03] MEDS ORDERED: HYDR-3801 PO (10:02)
[2017-08-03] MEDS ORDERED: NITR0.4S SL (10:02)
[2017-08-03] MEDS ORDERED: METO50TA PO (10:02)
[2017-08-03] MEDS ORDERED: AMLO10TA2 PO (10:02)
[2017-08-03] MEDS: HEPARIN SODIUM - SQ 10,000 UNITS/ML VIAL SQ SCH (10:02)
[2017-08-03] MEDS ORDERED: NIFE90TA2 PO (10:02)
[2017-08-03] MEDS ORDERED: CLON0.2T PO (10:02)
--- NOTE | 2017-08-03 10:02 | HHI.DS ---
Discharge Summary Admission Date Aug 01, 2017 at 02:51 Discharge Date: Aug 03, 2017 Admitting Diagnosis Hypertensive emergency, pulmonary edema (1) Hypertensive urgency ICD Code: I16.0 - Hypertensive urgency (2) Chest pain ICD Code: R07.9 - Chest pain, unspecified (3) COPD (chronic obstructive pulmonary disease) ICD Code: J44.9 - Chronic obstructive pulmonary disease, unspecified (4) ESRD (end stage renal disease) on dialysis ICD Code: N18.6 - End stage renal failure on dialysis; Z99.2 - Dependence on renal dialysis Status: Acute Procedures No procedures Brief History - From Admission This is a 42-year-old female with a PMH of HTN, ESRD on HD T// and COPD who was brought to the ER secondary to c/o chest pain and SOB. Reports symptoms started acutely this evening, had episode of wheezing, however resolved after DuoNeb. Denies fever or chills. Does note recent cough/congestion. On arrival , BP 232/127, HR 100, O2 sat 100% on 2L NC. Immediately started on Cardene gtt and given NTG in ER. CBC at baseline. Chemistry essentially at baseline. Creatinine 8.90, previously 7.16 on 10/13/16. Troponin 0.03. BNP 1381. Lactic Acid negative. CXR with cardiomegaly and pulmonary vascular congestion. VQ scan negative. Reports HD on without complications, follows w/ Dr. Delong. CBC/BMP: 08/02/17 1033 08/02/17 1003 Significant Findings Laboratory Tests Test 08/01/17 01:10 08/01/17 01:20 08/01/17 16:05 08/02/17 10:03 Red Blood Count 2.88 MIL/MM3 (4.00-5.30) Hemoglobin 9.2 GM/DL (11.6-15.3) Hematocrit 27.8 % (35.0-46.0) Platelet Count 124 TH/MM3 (150-450) Monocytes (%) (Auto) 12.6 % (0.0-8.0) Lymphocytes # (Auto) 0.9 TH/MM3 (1.0-4.8) D-Dimer Quantitative (PE/DVT) 1.90 MG/L FEU (0.00-0.50) Blood Urea Nitrogen 60 MG/DL (7-18) 30 MG/DL (7-18) Creatinine 8.90 MG/DL (0.50-1.00) 6.41 MG/DL (0.50-1.00) Chloride Level 108 MEQ/L (98-107) Carbon Dioxide Level 19.8 MEQ/L (21.0-32.0) Estimat Glomerular Filtration Rate 6 ML/MIN (>89) 9 ML/MIN (>89) B-Type Natriuretic Peptide 1381 PG/ML (0-100) Troponin I 0.06 NG/ML (0.02-0.05) Random Glucose 125 MG/DL (74-106) Albumin 3.3 GM/DL (3.4-5.0) Alkaline Phosphatase 38 U/L (45-117) Aspartate Amino Transf (AST/SGOT) 12 U/L (15-37) Test 08/02/17 10:33 08/03/17 09:15 Red Blood Count 2.89 MIL/MM3 (4.00-5.30) Hemoglobin 9.4 GM/DL (11.6-15.3) Hematocrit 27.5 % (35.0-46.0) Platelet Count 140 TH/MM3 (150-450) Monocytes (%) (Auto) 14.8 % (0.0-8.0) Imaging Last Impressions Chest X-Ray 08/01/17 0049 Signed Impressions: Service Date/Time: Tuesday, August 01, 2017 01:09 - CONCLUSION: Cardiomegaly and pulmonary vascular congestion suspected. Dru Motta MD Lung Scan-V Nuclear Medicine 08/01/17 0000 Signed Impressions: Service Date/Time: Tuesday, August 01, 2017 02:33 - CONCLUSION: Normal examination. Dru Motta MD PE at Discharge GENERAL: This is a well-nourished, well-developed patient, in no apparent distress. CARDIOVASCULAR: Normal rate and regular rhythm without murmurs, gallops, or rubs. RESPIRATORY: Good respiratory efforts. Diminished breath sounds at the bases. Faint expiratory wheezes bilaterally. GASTROINTESTINAL: Abdomen soft, non-tender, non-distended. Normal active bowel sounds MUSCULOSKELETAL: Extremities without cyanosis, or edema. NEURO: Alert & Oriented x4 to person, place, time, situation. Moves all ext x4 PSYCH: Appropriate mood and affect. Pt update on day of discharge No events overnight. Cleared by nephrology for discharge Arrangements for dialysis tomorrow per nephrology done Hospital Course 42-year-old female who presented with shortness of breath and chest pain. The patient missed hemodialysis. She was found to be in hypertensive urgency: Hypertensive Urgency: BP 232/127, HR 100 on arrival, status post Cardene gtt. BP better controlled. Continue home dose antihypertensives. Patient is on multiple agents. Discussed the need to be compliant. Chest Pain: Likely related to uncontrolled BP. EKG and cardiac enzymes unremarkable. Chest pain resolved. CXR w/ pulmonary congestion. VQ negative for PE. ESRD on HD: Appreciate nephrology following. Hemodialysis per nephrology. COPD: Chronic Respiratory Failure w/ Acute Exacerbation. Moderate. +wheezing prior to arrival, s/p DuoNeb w/ resolution. Monitor O2. DuoNeb prn. Patient improved, cleared by nephrology for discharge. Discharged home in stable condition. Patient will have hemodialysis with [facility] tomorrow in the morning. Will follow with nephrology Dr. Delong as outpatient. Follow-up with PCP and consultants as outpatient Pt Condition on Discharge: Stable Discharge Disposition: Disch w/ Home Health Serv Discharge Time: > 30 minutes Discharge Instructions DIET: Follow Instructions for: Dialysis Diet Activities you can perform: Regular-No Restrictions Follow up Referrals: Appointment for Follow Up Nephrology - 3-5 Days PCP Follow-up - 2-3 Days PCP Follow-up New Medications: Nitroglycerin SL (Nitrostat SL) 0.4 Mg Subl 0.4 MG SL Q5M PRN for CHEST PAIN, #30 TAB Continued Medications: Amlodipine (Amlodipine) 10 Mg Tab 10 MG PO DAILY for Blood Pressure Management, #30 TAB 0 Refills (This prescription has been renewed) Cinacalcet (Sensipar) 30 Mg Tab 30 MG PO HS, #30 TAB 0 Refills Clonidine (Clonidine) 0.2 Mg Tab 0.2 MG PO TID for Blood Pressure Management, #60 TAB 0 Refills (This prescription has been renewed) Hydralazine (Hydralazine) 100 Mg Tab 100 MG PO TID for Blood Pressure Management, #90 TAB 0 Refills (This prescription has been renewed) Take with meals Metoprolol Tartrate (Metoprolol Tartrate) 50 Mg Tab 50 MG PO BID for Blood Pressure Management, #60 TAB 0 Refills (This prescription has been renewed) Nifedipine (Nifedipine ER) 90 Mg Tab 60 MG PO DAILY for Blood Pressure Management, #30 MG (This prescription has been renewed) Sevelamer Carbonate (Renvela) 800 Mg Tab 1600 MG PO TID for Control phosphorous levels, #180 TAB 0 Refills Discontinued Medications: Clonidine (Clonidine) 0.1 Mg Tab 0.1 MG PO TID for Blood Pressure Management, #60 TAB 0 Refills Char Ramirez MD Aug 03, 2017 10:02
--- NOTE | 2017-08-03 10:04 | HHI.FF ---
Face to Face Verification Diagnosis: (1) Hypertension (2) History of CVA (cerebrovascular accident) (3) Anemia in chronic kidney disease (CKD) (4) Hyperlipidemia (5) Noncompliance (6) ESRD (end stage renal disease) on dialysis (7) Hypertensive urgency (8) COPD (chronic obstructive pulmonary disease) Physical Therapy Order: Evaluate and Treat Home Health Nursing Order: Medical education Signs/symptoms of disease process Medication education-adverse effect Nursing assessment with vital signs I have seen patient Roxann English on 08/03/17. My clinical findings support the need for the requested home health care services because: Ltd mobility - disease progression Patient has SOB I certify that my clinical findings support that this patient is homebound because: Post-op weakness Hx COPD- exertion dyspnea/weakness Unsteady gait/balance Char Raimrez MD Aug 03, 2017 10:04
[2017-08-03 10:18] LABS: AUTOMATED NEUTROPHIL # 3.2 TH/MM3 (1.8-7.7); BASOPHIL % 0.8 % (0.0-2.0); EOSINOPHIL # 0.2 TH/MM3 (0-0.4); EOSINOPHIL % 2.8 % (0.0-4.0); HEMATOCRIT 30.2 % (35.0-46.0); HEMOGLOBIN 10.3 GM/DL (11.6-15.3); LYMPH % 24.6 % (9.0-44.0); LYMPHOCYTE # 1.5 TH/MM3 (1.0-4.8); MEAN CELL VOLUME 94.3 FL (80.0-100.0); MEAN CORPUSCULAR HEMOGLOBIN 32.2 PG (27.0-34.0); MEAN CORPUSCULAR HGB CONC 34.2 % (32.0-36.0); MEAN PLATELET VOLUME 10.8 FL (7.0-11.0); MONOCYTE # 1.1 TH/MM3 (0-0.9); NEUT % 53.8 % (16.0-70.0); PLATELET COUNT 140 TH/MM3 (150-450); RED CELL DISTRIBUTION WIDTH 13.5 % (11.6-17.2); WHITE BLOOD COUNT 5.9 TH/MM3 (4.0-11.0)
--- NOTE | 2017-08-03 10:52 | HHI.NPPN ---
Subjective General Problems: Anemia, Hypertension Renal Failure: End Stage Renal Disease History of Present Illness 42-year-old female with a PMH of HTN, ESRD on HD T// and COPD who was brought to the ER secondary to c/o chest pain and SOB. Patient was also found to have uncontrolled Hypertension. Additional Remarks Patient is alert, still has chest pain off and on , no SOB plans for discharge home today (Mitzi Stephens) Review of Systems Cardiovascular Cardiac: Chest Pain (Mitzi Stephens) Objective Data Data 08/03/17 08/04/17 19:00 07:00 Output Total 400 ml Balance -400 ml Output Urine Total 400 ml Vital Signs Date Time Temp Pulse Resp B/P (MAP) Pulse Ox O2 Delivery O2 Flow Rate FiO2 08/03/17 07:50 98.0 71 18 127/80 (96) 99 08/03/17 04:00 97.2 62 18 114/61 (78) 100 08/03/17 02:38 18 08/03/17 00:00 98.4 77 18 120/63 (82) 99 08/02/17 20:00 98.3 77 18 114/77 (89) 100 08/02/17 18:00 74 08/02/17 16:00 99.2 74 26 129/76 (93) 97 08/02/17 16:00 74 08/02/17 14:00 81 08/02/17 12:00 98.6 76 18 129/76 (93) 96 08/02/17 12:00 74 (Mitzi Stephens) -: 08/03/17 0915 08/02/17 1003 Physical Exam General Appearance: Well Nourished, No Acute Distress, Comfortable (Mitzi Stephens) Eyes Eye Exam: Pupils Equal (Mitzi Stephens) Throat Throat Exam: Oral Mucosa [place] & Moist (Mitzi Stephens) Pulmonary Resp Exam: Breath Sounds Equal, No Distress, Decreased Bases (Mitzi Stephens) Cardiology CV Exam: Regular, Normal Sinus Rhythm (Mitzi Stephens) Gastrointestinal/Abdomen GI Exam: Soft, Non-Tender, Bowel Sounds Present, Non-Distended (Mitzi Stephens) Extremeties Extremities Exam: Trace Edema (Mitzi Stephens) Neurologic Neuro Exam: Alert, Awake, Oriented (Mitzi Stephens) Psychiatric Psych Exam: Appropriate Responses (Mitzi Stephens) Assessment/Plan Assessment Summary: Anemia of CKD, Hypertension, End Stage Renal Disease Problem List: (1) ESRD (end stage renal disease) on dialysis ICD Codes: N18.6 - End stage renal failure on dialysis; Z99.2 - Dependence on renal dialysis Status: Acute Plan: HD on T/TH/Sat Dr. Delong is architecture internship Will arrange of dialysis today since patient missed dialysis on Tuesday and patient is HTN Chest xray with pulmonary vascular congestion HD done again today to put her back on regular schedule. BP is better, now off Nicardipine. Plans for discharge home today with dialysis tomorrow at [facility] (2) Hypertensive urgency ICD Codes: I16.0 - Hypertensive urgency Plan: Home medications resumed (3) COPD (chronic obstructive pulmonary disease) ICD Codes: J44.9 - Chronic obstructive pulmonary disease, unspecified ( Mitzi Stephens) Problem List: (1) ESRD (end stage renal disease) on dialysis ICD Codes: N18.6 - End stage renal failure on dialysis; Z99.2 - Dependence on renal dialysis Status: Acute Plan: HD on T/TH/Sat Dr. Delong is architecture internship Will arrange of dialysis today since patient missed dialysis on Tuesday and patient is HTN Chest xray with pulmonary vascular congestion HD done yesterday. BP is better, now off Nicardipine. Plans for discharge home today with dialysis tomorrow at [facility]. Patient is for discharge. HD will be in AM as out patient. To follow with Dr. Delong. (2) Hypertensive urgency ICD Codes: I16.0 - Hypertensive urgency Plan: Home medications resumed (3) COPD (chronic obstructive pulmonary disease) ICD Codes: J44.9 - Chronic obstructive pulmonary disease, unspecified (Jared Shine MD) Mitzi Stephens Aug 03, 2017 10:52 Jared Shine MD Aug 03, 2017 17:42
[2017-08-03 11:41] VITALS: BP 111/66; PULSE 80; RESP 18; TEMP 98.4; O2SAT 100
== END 2017-08-03 11:59 | disposition home health service (06) | DRG 304 ==
LOC: NEPE 00:47 → NEDA 02:51 → N03A 07:22 → N03B 08-02 19:08 → N05B 08-03 01:02
PROVIDERS: ADMIT Hospitalist; ATTEND Hospitalist
PROC: 5A1D70Z Performance of Urinary Filtration, Intermittent, Less than 6 Hours Per Day (ICD-10-PCS; principal; 2017-08-01)
DX: I16.1 Hypertensive emergency (principal); N18.6 End stage renal disease; I42.9 Cardiomyopathy, unspecified; J44.1 Chronic obstructive pulmonary disease with (acute) exacerbation; I13.11 Hypertensive heart and chronic kidney disease without heart failure, with stage 5 chronic kidney disease, or end stage renal disease; R00.0 Tachycardia, unspecified; I49.9 Cardiac arrhythmia, unspecified; D63.1 Anemia in chronic kidney disease; F12.90 Cannabis use, unspecified, uncomplicated; Z82.49 Family history of ischemic heart disease and other diseases of the circulatory system; Z86.14 Personal history of Methicillin resistant Staphylococcus aureus infection; Z99.2 Dependence on renal dialysis
CPT/HCPCS: 71045; 78582; 80053; 82550; 83036; 83605; 83735; 83880; 84100; 84439; 84443; 84484; 84703; 85025; 85379; 85610; 85730; 87040; 90935; 93005; 96374; A9540; A9567; J1644; J1940; J7040; J7050; Q4081